=== PATIENT | male | born 1990 | race Caucasian/White ===

== ENCOUNTER 2018-06-24 06:35 | Emergency (ER) | payer SELFPAY ==
[~2018-06-24] VITALS: Ht 167.6 cm; Wt 74.0 kg
[2018-06-24 06:36] VITALS: BP 125/71
[2018-06-24] MEDS ORDERED: LIDODERM 5% PATCH TD ONE (07:00)
== END 2018-06-24 07:53 | disposition home or self-care (01) ==
LOC: ED 07:40
DX: S90.812A Abrasion, left foot, initial encounter (principal); S90.811A Abrasion, right foot, initial encounter; G89.11 Acute pain due to trauma; X58.XXXA Exposure to other specified factors, initial encounter; Y93.01 Activity, walking, marching and hiking; Y92.89 Other specified places as the place of occurrence of the external cause; Y99.8 Other external cause status
CPT/HCPCS: 99283

== ENCOUNTER 2018-07-16 09:33 | Emergency (ER) | payer MEDICAID, OTHER ==
[~2018-07-16] VITALS: Ht 175.3 cm; Wt 68.0 kg
[2018-07-16 10:04] LABS: BASOPHILS # (AUTO) 0.05 x10^3/uL (0-0.1); BASOPHILS % (AUTO) 1 % (0-1); EOSINOPHILS # (AUTO) 0.38 x10^3/uL (0-0.4); EOSINOPHILS % (AUTO) 4 % (1-7); LYMPHOCYTES # (AUTO) 2.43 x10^3/uL (1-3.4); LYMPHOCYTES % (AUTO) 25 % (22-44); MD NO; MEAN CORPUSCULAR HEMOGLOBIN 30.2 pg (27.5-34.5); MEAN CORPUSCULAR HGB CONC 33.9 g/dL (33.2-36.2); MEAN CORPUSCULAR VOLUME 89.3 fL (81-97); MEAN PLATELET VOLUME 8.2 fL (7.4-10.4); MONOCYTES # (AUTO) 0.83 x10^3/uL (0.2-0.8); MONOCYTES % (AUTO) 9 % (2-9); NEUTROPHILS # (AUTO) 6.01 x10^3/uL (1.8-6.8); NEUTROPHILS % (AUTO) 62 % (42-75); PLATELET COUNT 387 x10^3/uL (130-400); RED BLOOD COUNT 4.87 x10^6/uL (4.38-5.82); RED CELL DISTRIBUTION WIDTH 12.9 % (9.4-14.8)
[2018-07-16 10:08] VITALS: BP 126/78
[2018-07-16 10:17] LABS: ALBUMIN 3.4 g/dL (3.4-5.0); ANION GAP 3 mmol/L (5-15); CALCIUM 8.2 mg/dL (8.5-10.1); CHLORIDE 109 mmol/L (98-107); CREATININE 0.78 mg/dL (0.7-1.3)
[2018-07-16 10:19] LABS: ACETAMINOPHEN < 2 mcg/mL (10-30); SALICYLATE LEVEL < 1.7 mg/dL (2.8-20.0)
[2018-07-16 10:27] LABS: AMPHETAMINE SCREEN, URINE Negative (Negative); BARBITURATE SCREEN, URINE Negative (Negative); BENZODIAZEPINE SCREEN, URINE Negative (Negative); CANNABINOID SCREEN, URINE Negative (Negative); COCAINE SCREEN, URINE Negative (Negative); METHADONE SCREEN, URINE Negative (Negative); OPIATE SCREEN, URINE Negative (Negative)
[2018-07-16 11:29] LABS: ALBUMIN 3.4 g/dL (3.4-5.0)
[2018-07-16 11:32] LABS: ALANINE AMINOTRANSFERASE 33 U/L (12-78); ALKALINE PHOSPHATASE 69 U/L (45-117); BILIRUBIN,TOTAL 0.2 mg/dL (0.2-1.0)
[2018-07-16 11:34] LABS: BILIRUBIN, DIRECT < 0.1 mg/dL (0.1-0.2); BILIRUBIN,INDIRECT 0.1 mg/dL (0.0-2.0)
== END 2018-07-16 19:06 ==
LOC: ED 16:08
DX: T14.91XA Suicide attempt, initial encounter (principal); X83.8XXA Intentional self-harm by other specified means, initial encounter; Y93.89 Activity, other specified; Y92.89 Other specified places as the place of occurrence of the external cause; Y99.8 Other external cause status; Z79.899 Other long term (current) drug therapy; Z02.89 Encounter for other administrative examinations
CPT/HCPCS: 36415; 80048; 80076; 80307; 80329; 82040; 85025; 93005; 99285; G0480

== ENCOUNTER 2019-06-05 15:32 | Emergency (ER) | payer MEDICAID ==
[~2019-06-05] VITALS: Ht 167.6 cm; Wt 75.7 kg
[2019-06-05 15:39] VITALS: BP 147/74
== END 2019-06-05 16:10 | disposition home or self-care (01) ==
LOC: ED 16:00
DX: M79.672 Pain in left foot (principal); M79.671 Pain in right foot; L03.012 Cellulitis of left finger; F17.200 Nicotine dependence, unspecified, uncomplicated
CPT/HCPCS: 99283

== ENCOUNTER 2019-10-08 21:15 | Emergency (ER) | payer MEDICAID ==
[~2019-10-08] VITALS: Ht 167.6 cm; Wt 72.6 kg
[2019-10-08 21:47] VITALS: BP 126/87
[2019-10-08 22:51] LABS: MICROSCOPIC NOT IND
[2019-10-08 22:57] LABS: CULTURE INDICATED? NO
== END 2019-10-08 23:33 | disposition home or self-care (01) ==
LOC: ED 23:05
DX: A64 Unspecified sexually transmitted disease (principal); Z72.9 Problem related to lifestyle, unspecified
CPT/HCPCS: 81003; 87491; 87591; 99283

== ENCOUNTER 2019-12-03 16:31 | Emergency (ER) | payer MEDICAID ==
[2019-12-03 16:35] VITALS: BP 125/73
--- NOTE | 2019-12-03 17:04 | NUR ---
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 PT SIGNED OUT AMA AND WALKED TO DC. PT AMBULATED TO DC WITH STEADY GAIT..
== END 2019-12-03 17:06 ==
LOC: EDBD 16:31 → ED 17:01 → MERGE 17:06 → ED 17:07
DX: G93.49 Other encephalopathy (principal)
CPT/HCPCS: 99283

== ENCOUNTER 2020-08-04 03:17 | Emergency (ER) | payer MEDICAID ==
[~2020-08-04] VITALS: Ht 177.8 cm; Wt 75.0 kg
[2020-08-04 03:20] VITALS: BP 168/95
--- NOTE | 2020-08-04 04:14 | NUR ---
pt d/c with d/c summary and instructions to f/u with pcp. pt refusing to leave premises at this time. security notified to help assist pt out to lobby.
== END 2020-08-04 04:17 | disposition home or self-care (01) ==
LOC: ED 03:30
DX: S30.863A Insect bite (nonvenomous) of scrotum and testes, initial encounter (principal); F15.222 Other stimulant dependence with intoxication with perceptual disturbance; F41.1 Generalized anxiety disorder; F22 Delusional disorders; F17.200 Nicotine dependence, unspecified, uncomplicated; W57.XXXA Bitten or stung by nonvenomous insect and other nonvenomous arthropods, initial encounter; Y93.89 Activity, other specified; Y92.89 Other specified places as the place of occurrence of the external cause; Y99.8 Other external cause status
CPT/HCPCS: 99283

== ENCOUNTER 2020-08-05 20:39 | Emergency (ER) | payer MEDICAID ==
[~2020-08-05] VITALS: Ht 172.7 cm; Wt 62.0 kg
[2020-08-05] MEDS ORDERED: LORazepam 2 MG/ML, 1ML ONE (20:49)
[2020-08-05] MEDS ORDERED: HALOPERIDOL 5 MG/ML ONE (20:49)
--- NOTE | 2020-08-05 20:50 | NUR ---
BIBA for psychotic behavior. [place] [address] yelling at cars and being very restless. Residents called [employer] and pt continued to be eratic and agitated. Upon EMS arrival, pt was difficult to refocus, but AAOx4, pt reports hx of schizophrenia not on medications. Pt c/o physical and visual hallucinations, stating "spiders are all over me." Pt admits to meth hx but denies use today. Jaxon SI/HI. Pt uncooperative in triage, very restless and difficulty concentrating
--- NOTE | 2020-08-05 20:55 | NUR ---
Pt very agitated and restless, orders for IM ativan and haldol, additional staff assistance at bedside, pt refusing to cooperate, security called and pt medicated, pt refusing to change into gown, pt eventually put legs in bed and agreeable to vital signs and bed rails up, pt provided with juice and water, tv turned on and lights lowered to decreased stimulation, sitter observing from hallway for safety, will continue to monitor
[2020-08-05] MEDS ORDERED: PLEASE ENTER HEIGHT AND WEIGHT MC SCH (21:00)
[2020-08-05] MEDS ORDERED: LORazepam 2 MG/ML, 1ML IM ONE (21:00)
[2020-08-05] MEDS ORDERED: HALOPERIDOL 5 MG/ML IM ONE (21:00)
--- NOTE | 2020-08-05 21:15 | NUR ---
Pt appears to be calming down following medication administration. Dr Sorto informed of condition, pt to be closely monitored and observed for safety at this time, pt appears comfortable in [facility], slightly restlses but improving from previous presentation
--- NOTE | 2020-08-05 21:39 | NUR ---
Pt sleeping at this time, respirations equal and unlabored, NADN, safety of room ensured, sitter at bedside
--- NOTE | 2020-08-05 22:37 | NUR ---
Pt continues to sleep, with periods of waking up, VSS, NADN, will continue to monitor
--- NOTE | 2020-08-05 23:39 | NUR ---
Pt continues to sleep. Per sitter, pt had moment of waking up and appeared confused while grabbing siderails and then became drowsy and fell back asleep, sitter states she asked pt if he knew where he was, and pt didn't provide an answer. Pt now asleep again, wilmer frankel
--- NOTE | 2020-08-05 23:52 | NUR ---
Pt O2 noted to be dropping while pt sleeping, 2 L NC applied, pt O2 sat increased to 94%
--- NOTE | 2020-08-06 00:34 | NUR ---
Pt continues to remove self from NC and ripping it off as soon as reapplied. Pt o2 sat 97% on RA at this time, will monitor need for NC as pt falls asleep
--- NOTE | 2020-08-06 02:16 | NUR ---
Pt continues to sleep in [place], respirations equal and unlabored, jostin, wilmer, sitter in view from sebastian
[2020-08-06 05:36] VITALS: BP 110/58
--- NOTE | 2020-08-06 05:54 | NUR ---
security to bedside to escort pt off unit
== END 2020-08-06 05:56 | disposition home or self-care (01) ==
LOC: ED 21:13
DX: F15.129 Other stimulant abuse with intoxication, unspecified (principal); F17.200 Nicotine dependence, unspecified, uncomplicated; F17.210 Nicotine dependence, cigarettes, uncomplicated; Z72.9 Problem related to lifestyle, unspecified
CPT/HCPCS: 96372; 99285; 99406; J1630; J2060

== ENCOUNTER 2020-09-06 09:35 | Emergency (ER) | payer MEDICAID ==
--- NOTE | 2020-09-06 09:46 | NUR ---
NO ANSWER WHEN CALLED FOR TRIAGE.
--- NOTE | 2020-09-06 10:05 | NUR ---
NO ANSWER FROM TRIAGE X 2 @1002
--- NOTE | 2020-09-06 10:20 | NUR ---
NO ANSWER FROM TRIAGE X3 @6812
== END 2020-09-06 10:21 | disposition left against medical advice (07) ==
LOC: ED 10:00
DX: Z53.21 Procedure and treatment not carried out due to patient leaving prior to being seen by health care provider (principal)

== ENCOUNTER 2020-10-13 12:27 | Emergency (ER) | payer MEDICAID ==
[~2020-10-13] VITALS: Ht 167.6 cm; Wt 70.0 kg
[2020-10-13 12:41] VITALS: BP 124/73
[2020-10-13 13:14] LABS: BASOPHILS % (AUTO) 0 % (0-1); EOSINOPHILS % (AUTO) 1 % (1-7); LYMPHOCYTES % (AUTO) 20 % (22-44); MEAN CORPUSCULAR HEMOGLOBIN 29.6 pg (27.5-34.5); MEAN CORPUSCULAR HGB CONC 33.9 g/dL (33.2-36.2); MEAN PLATELET VOLUME 7.9 fL (7.4-10.4); MONOCYTES % (AUTO) 17 % (2-9); NEUTROPHILS % (AUTO) 62 % (42-75); PLATELET COUNT 362 x10^3/uL (130-400); RED BLOOD COUNT 5.26 x10^6/uL (4.38-5.82); RED CELL DISTRIBUTION WIDTH 13.2 % (9.4-14.8)
[2020-10-13 13:16] LABS: MD NO
[2020-10-13 13:30] LABS: ALANINE AMINOTRANSFERASE 81 U/L (12-78); ALBUMIN 4.3 g/dL (3.4-5.0); ALKALINE PHOSPHATASE 110 U/L (45-117); ANION GAP 6 mmol/L (5-15); BILIRUBIN,TOTAL 0.7 mg/dL (0.2-1.0); CALCIUM 8.9 mg/dL (8.5-10.1); CHLORIDE 106 mmol/L (98-107); CREATININE 0.84 mg/dL (0.7-1.3); SALICYLATE LEVEL < 1.7 mg/dL (2.8-20.0); TOTAL PROTEIN 7.8 g/dL (6.4-8.2)
--- NOTE | 2020-10-13 17:30 | NUR ---
SKIN PILER: CALLED PT NO ANSWER
--- NOTE | 2020-10-13 17:41 | NUR ---
[employer] SP[employer]ISH TEACHER: CALLED PT NO ANSWER
--- NOTE | 2020-10-13 17:49 | NUR ---
CAKE WASHER: CALLED PT NO ANSWER
== END 2020-10-13 17:52 | disposition left against medical advice (07) ==
LOC: ED 17:30
DX: F41.9 Anxiety disorder, unspecified (principal); R00.0 Tachycardia, unspecified
CPT/HCPCS: 36415; 80053; 80307; 85025; 99283

== ENCOUNTER 2021-06-15 13:03 | Emergency (ER) | payer MEDICAID ==
[~2021-06-15] VITALS: Ht 167.6 cm; Wt 87.1 kg
--- NOTE | 2021-06-15 13:25 | NUR ---
BREAK RN: PT AMBULATED TO ROOM FROM TRIAGE WITH STEADY GAIT. PT BELONGINGS PLACED INTO ONE BELONGINGS BAG AND STORED IN ED LOCKER. PT STATES UNABLE TO PROVIDE URINE SAMPLE AT THIS TIME. PT DENIES DRUG AND ETOH. PT LAYING ON GURNEY IN POSITION, RESP EVEN AND UNLABORED. ROOM SECURE. PT IN DIRECT SIGHT OF SITTER. PT STATES HE'S BEEN HAVING SUICIDAL THOUGHTS SINCE YESTERDAY. "I MIGHT WALK INTO TRAFFIC OR SOMETHING". REPORT GIVEN TO PRIMARY RN SUZE.
[2021-06-15 13:58] LABS: BASOPHILS % (AUTO) 1 % (0-1); EOSINOPHILS % (AUTO) 3 % (1-7); LYMPHOCYTES % (AUTO) 20 % (22-44); MEAN CORPUSCULAR HEMOGLOBIN 31.3 pg (27.5-34.5); MEAN CORPUSCULAR HGB CONC 35.4 g/dL (33.2-36.2); MEAN PLATELET VOLUME 7.9 fL (7.4-10.4); MONOCYTES % (AUTO) 14 % (2-9); NEUTROPHILS % (AUTO) 62 % (42-75); PLATELET COUNT 352 x10^3/uL (130-400); RED BLOOD COUNT 4.57 x10^6/uL (4.38-5.82)
[2021-06-15 14:08] LABS: ALBUMIN 3.5 g/dL (3.4-5.0); ANION GAP 6 mmol/L (5-15); CALCIUM 8.3 mg/dL (8.5-10.1); CHLORIDE 107 mmol/L (98-107)
--- NOTE | 2021-06-15 14:11 | NUR ---
PT IN ROOM IN GOWN. ROOM IS SAFE AND SECURE WITH JODIE SITTER OUTSIDE ROOM . PT HERE FOR SI NO ATTEMPTS. PT HAS A PLAN TO OVERDOSE PER TRIAGE. PT REFUSES TO TALK TO PRIMARY RN. NAD
[2021-06-15 14:21] LABS: ALANINE AMINOTRANSFERASE 33 U/L (12-78); ALKALINE PHOSPHATASE 80 U/L (45-117); BILIRUBIN,TOTAL 0.8 mg/dL (0.2-1.0); TOTAL PROTEIN 7.1 g/dL (6.4-8.2)
[2021-06-15 14:22] LABS: SALICYLATE LEVEL < 1.7 mg/dL (2.8-20.0)
--- NOTE | 2021-06-15 14:45 | NUR ---
PT SIGNED CONSENT FOR [facility] RECORDS
[2021-06-15 16:38] LABS: AMPHETAMINE SCREEN, URINE Positive (Negative); BARBITURATE SCREEN, URINE Negative (Negative); BENZODIAZEPINE SCREEN, URINE Negative (Negative); CANNABINOID SCREEN, URINE Negative (Negative); COCAINE SCREEN, URINE Negative (Negative); METHADONE SCREEN, URINE Negative (Negative); OPIATE SCREEN, URINE Negative (Negative)
--- NOTE | 2021-06-15 17:15 | NUR ---
PT SLEEPING IN ROOM, RR EVEN AND UNLABORED. NAD. DIET TRAY ORDERED. SITTER IN DIRECT VIEW OF PT
--- NOTE | 2021-06-15 17:25 | NUR ---
DIET TRAY GIVEN
[2021-06-15 18:07] VITALS: BP 124/74
== END 2021-06-15 18:09 | disposition home or self-care (01) ==
LOC: ED 15:01
DX: F15.159 Other stimulant abuse with stimulant-induced psychotic disorder, unspecified (principal); R94.31 Abnormal electrocardiogram [ECG] [EKG]
CPT/HCPCS: 36415; 80053; 80299; 80307; 80320; 80329; 85025; 93005; 99284; G0480

== ENCOUNTER 2021-06-15 20:07 | Observation (INO) | payer MEDICAID ==
[~2021-06-15] VITALS: Ht 167.6 cm; Wt 90.9 kg
--- NOTE | 2021-06-15 20:30 | NUR ---
Note juno in ED - 06/15/21 at 2122 by TELLO Pt resting comfortably in room, denies needs. Sitter in direct view of patient. Pt in no obvious distress. Respirations even and unlabored.
--- NOTE | 2021-06-15 20:30 | NUR ---
Pt resting comfortably in room, denies needs. Pt in no obvious distress. Respirations even and unlabored.
[2021-06-15] MEDS ORDERED: HALOPERIDOL 5 MG TABLET PO SCH (21:00)
[2021-06-15] MEDS ORDERED: HALOPERIDOL 5 MG TABLET ONE (21:06)
--- NOTE | 2021-06-15 21:15 | NUR ---
Pt alet and oriented x4, pleasant upon initial assessment. Calm and cooperative with care. Not aggressive towards staff. Pt endorses thoughts of SI. No concrete plan, however, he has had thoughts about walking into traffic to end his life, denies/wont elaborate on any prior SI attempts. Denies any HI. Pt states he smokes cigarettes, drinks etoh occassionally, and uses methamphetamines daily. Ptwas discharged from [facility] today, and from this facility earlier today per EMS. Pt was picked up from [facility] after seeking detox from Meth. Was told that [facility] not offer detox, pt continued to be suicidal so he was brought here. Pt denies any physical complaints. Denes any pain, sob, chest pain, no covid symptoms. Pt is fully vaccinated. Pt has a hx of Asthma, PTSD, Anxiety, and Schzophrenia for which he takes Zyprexa and Risperidone. Pt does not know his doses and says he has had a difficulty time staying compliant with his medicaionts, as he is homeless. Pt belongings secured in labeled patient belongings bag at bedside. Belongings are as followed: black and red shirt, blue vans (1 pair, 2 shoes total), [employer]" baseball cap, black shorts. Denies any weapons or any other valuables.
--- NOTE | 2021-06-15 21:15 | NUR ---
Pt provided with blankets. Resting comfortably
--- NOTE | 2021-06-15 22:15 | NUR ---
Pt resting comfortably in room, denies needs. Pt in no obvious distress. Respirations even and unlabored.
--- NOTE | 2021-06-15 22:38 | NUR ---
Pt ambulatory to [facility] to provide urine specimen
--- NOTE | 2021-06-15 22:48 | NUR ---
UDS tubed to lab
[2021-06-15 23:01] LABS: AMPHETAMINE SCREEN, URINE Negative (Negative); BARBITURATE SCREEN, URINE Negative (Negative); BENZODIAZEPINE SCREEN, URINE Negative (Negative); CANNABINOID SCREEN, URINE Negative (Negative); COCAINE SCREEN, URINE Negative (Negative); METHADONE SCREEN, URINE Negative (Negative); OPIATE SCREEN, URINE Negative (Negative)
--- NOTE | 2021-06-15 23:10 | NUR ---
WALKER RN: PACKET FAXED TO [facility], [place], [facility]
--- NOTE | 2021-06-15 23:30 | NUR ---
Pt resting comfortably in room, denies needs. Pt in no obvious distress. Respirations even and unlabored.
--- NOTE | 2021-06-15 23:33 | NUR ---
Subhash hopkins Uncle called for update. Reminded family member of HIPAA privacy policy. No information disclosed. Subhash [phone]. Phone number provided in case pt would like to get in contact with uncle at later juncture
--- NOTE | 2021-06-16 | NUR ---
Pt resting comfortably in room, denies needs. Pt in no obvious distress. Respirations even and unlabored.
--- NOTE | 2021-06-16 00:29 | NUR ---
Attempted x1 to call report to [facility]. Instructed this RN to call back in 15 minutes.
[2021-06-16 00:46] VITALS: BP 113/63
--- NOTE | 2021-06-16 00:54 | NUR ---
TP RN: PT HAS BEEN ACCEPTED BY [facility]. ACCEPTING DOCTOR IS DR KUMAR.
--- NOTE | 2021-06-16 01:01 | NUR ---
Report given to Maria Alejandra at [facility], all questions answered.
--- NOTE | 2021-06-16 01:48 | NUR ---
Pt left ED at this time w/ [facility] crew, being transported to [facility]
== END 2021-06-16 02:11 ==
LOC: ED 20:37 → EDIP 22:33
PROVIDERS: ADMIT Emergency Medicine; ATTEND Emergency Medicine
DX: F41.8 Other specified anxiety disorders (principal); R45.851 Suicidal ideations; F15.10 Other stimulant abuse, uncomplicated
CPT/HCPCS: 80307; 93005; 99284; G0378

== ENCOUNTER 2021-08-06 10:53 | Emergency (ER) | payer MEDICAID ==
[~2021-08-06] VITALS: Ht 167.6 cm; Wt 85.5 kg
[2021-08-06] MEDS ORDERED: PROPARACAINE OPHTH 0.5%, 15ML EACHEYE ONE (11:30)
[2021-08-06] MEDS ORDERED: FLUORESCEIN OPHTHALMIC 1 MG STRIP EACHEYE ONE (11:30)
[2021-08-06] MEDS ORDERED: PROPARACAINE OPHTH 0.5%, 15ML ONE (15:13)
[2021-08-06] MEDS ORDERED: FLUORESCEIN OPHTHALMIC 1 MG STRIP ONE (15:13)
[2021-08-06 15:36] VITALS: BP 125/80
== END 2021-08-06 15:38 | disposition home or self-care (01) ==
LOC: ED 15:30
DX: H10.021 Other mucopurulent conjunctivitis, right eye (principal); L60.0 Ingrowing nail; F17.200 Nicotine dependence, unspecified, uncomplicated
CPT/HCPCS: 99283